=== PATIENT | female | born 1990 | race Caucasian/White ===

== ENCOUNTER → 2022-08-19 15:34 | Outpatient (CLI) | payer OTHER, MEDICAID, SELFPAY ==
--- NOTE | 2022-08-19 15:35 | DI.US.S_ITS ---
PROCEDURE: US PELVIC COMPLETE INDICATIONS: heavy periods w/ clots 15 pads daily TECHNIQUE: Real-time scanning was performed of the pelvic organs, with image documentation. Additional endovaginal scanning was necessary due to incomplete visualization of the adnexal and endometrial structures by transabdominal scanning. COMPARISON: None. FINDINGS: Uterus: Uterus is anteverted and normal in size at 8.3 x 4 x 5.1 cm. The myometrium is homogeneous. The endometrium measures 7 mm combined thickness. Ovaries: The right ovary measures 3.3 x 2.1 x 1.5 cm, with a calculated ovarian volume of 5.2 cc. The left ovary measures 3.4 x 2.2 x 1.9 cm, with a calculated ovarian volume of 7.4 cc. The ovaries have a normal sonographic appearance, within a 1.3 cm dominant follicle seen involving the left ovary, which is considered to be within physiologic limits. Less than 12 follicles can be seen in each ovary. No adnexal masses are seen. Other: No pathologic free abdominal or pelvic fluid. IMPRESSION: Pelvic ultrasound within normal limits, without a cause of the patient's presenting history identified. We strive to produce accurate, complete, and clear reports of imaging services. To assist us in improving patient care, this report was composed using standard report templates and voice recognition software. Therefore, it may contain abnormal punctuation, insertions and/or omissions. Occasional wrong-word or sound-alike substitutions may occur. Though we review the report and make efforts to correct it, we do recommend that the report be read carefully in proper context to recognize any text inaccuracies. Dictated by: Reagan Ochoa M.D. on 08/19/2022 at 15:51 Approved by: Reagan Ochoa M.D. on 08/19/2022 at 15:52
== END ==
PROVIDERS: PCP Family Medicine; Referring Provider Family Medicine; Visit Provider Family Medicine
DX: N92.0 Excessive and frequent menstruation with regular cycle (principal); M79.7 Fibromyalgia; R25.2 Cramp and spasm; G62.9 Polyneuropathy, unspecified
CPT/HCPCS: 76830; 76856

== ENCOUNTER → 2022-09-02 09:14 | Outpatient (CLI) | payer OTHER, MEDICAID, SELFPAY ==
[2022-09-02 19:44] LABS: HEMOLYSIS < 15 (0-50); Iron 202 ug/dL (37-170)
[2022-09-02 19:45] LABS: Add Manual Diff / Slide Review NO; Basophils Absolute Auto 0 /uL (0-100); Basophils Percent Auto 0.9 % (0-2); Eosinophils Absolute Auto 100 /uL (0-450); Eosinophils Percent Auto 1.8 % (2-4); Hematocrit 38.8 % (36-46); Hemoglobin 12.9 g/dL (12.0-16.0); Lymphocytes Absolute Auto 1000 /uL (1100-4500); Lymphocytes Percent Auto 23.6 % (25-40); Mean Corpuscular HGB Conc 33.4 % (30-36); Mean Corpuscular Hemoglobin 29.1 PG (26-34); Mean Corpuscular Volume 87.1 fL (80-100); Monocytes Absolute Auto 300 /uL (0-900); Neutrophils Absolute Auto 2900 /uL (1500-7000); Neutrophils Percent Auto 67.7 % (50-75); Platelet Count 166 X10^3/uL (150-400); Red Blood Cell Count 4.45 X10^6/uL (4.0-5.2); Red Cell Distribution Width 17.1 % (11.6-14.8); White Blood Cell Count 4.2 X10^3/uL (4.5-11.0)
[2022-09-02 19:48] LABS: Alanine Aminotransferase 210 IU/L (<35); Albumin 4.4 g/dL (3.5-5.0); Albumin Globulin Ratio 1.5 (1.0-2.8); Alkaline Phosphatase 132 U/L (38-126); Aspartate Aminotransferase 581 IU/L (14-36); Bilirubin Total 1.2 mg/dL (0.2-1.3); Blood Urea Nitrogen 8 mg/dL (7-17); C-Reactive Protein Quant < 0.5 mg/dL (<1.0); Calcium 8.6 mg/dL (8.4-10.2); Carbon Dioxide 34 mmol/L (22-32); Chloride 94 mmol/L (98-107); Creatine Kinase 70 U/L (30-135); Estimated Glomerular Filt Rate > 60 mL/min (>60); Globulin 2.9 g/dL (1.7-4.1); Glucose 78 mg/dL (70-100); HEMOLYSIS < 15 (0-50); Potassium 2.8 mmol/L (3.4-5.1); Sodium 138 mmol/L (137-145); Total Protein 7.3 g/dL (6.3-8.2)
[2022-09-02 19:57] LABS: Percent Iron Saturation 46 % (15-50); Rheumatoid Factor < 8.6 IU/mL (<12.0); Total Iron Binding Capacity 440 ug/dL (265-497); Transferrin 343 mg/dL (206-381)
[2022-09-02 20:04] LABS: Follicle Stimulating Hormone 6.03 mIU/mL; Luteinizing Hormone 3.73 mIU/mL
[2022-09-02 20:22] LABS: Prolactin 8.8 ng/mL (3.0-18.6)
[2022-09-02 20:38] LABS: TSH w/ Reflex to FT4 1.62 uIU/mL (0.47-4.68)
[2022-09-02 20:40] LABS: Ferritin 29 ng/mL (6-137)
[2022-09-02 20:55] LABS: Vitamin B12 860 pg/mL (239-931)
[2022-09-02 21:28] LABS: Erythrocyte Sedimentation Rate 10 MM/HR (0-20)
[2022-09-05 19:16] LABS: ANA Screen, IFA Negative (.)
[2022-09-11 09:05] LABS: Percent Free Testosterone 1.12 % (0.50-2.80); Testosterone Free 0.51 ng/dL (0.10-0.85); Testosterone Total 45.9 ng/dL (10.0-55.0)
[2022-09-11 11:30] LABS: Estrogen 246 pg/mL (.)
== END ==
PROVIDERS: PCP Family Medicine; Visit Provider Physician Assistant
DX: G62.9 Polyneuropathy, unspecified (principal); I10 Essential (primary) hypertension; M79.7 Fibromyalgia; R25.2 Cramp and spasm; N92.0 Excessive and frequent menstruation with regular cycle
CPT/HCPCS: 80053; 82550; 82607; 82672; 82728; 83001; 83002; 83540; 83550; 84146; 84402; 84403; 84443; 85025; 85610; 85651; 86038; 86140; 86430

== ENCOUNTER → 2022-09-03 10:00 | Outpatient (CLI) | payer OTHER, MEDICAID, SELFPAY ==
[2022-09-03 19:47] LABS: Alanine Aminotransferase 193 IU/L (<35); Albumin 4.6 g/dL (3.5-5.0); Albumin Globulin Ratio 1.5 (1.0-2.8); Alkaline Phosphatase 148 U/L (38-126); Aspartate Aminotransferase 440 IU/L (14-36); BUN Creatinine Ratio 15.4 (6-22); Bilirubin Total 1.8 mg/dL (0.2-1.3); Blood Urea Nitrogen 6 mg/dL (7-17); Calcium 8.9 mg/dL (8.4-10.2); Carbon Dioxide 32 mmol/L (22-32); Chloride 93 mmol/L (98-107); Estimated Glomerular Filt Rate > 60 mL/min (>60); Gamma Glutamyl Transpeptidase 793 U/L (12-43); Glucose 86 mg/dL (70-100); HEMOLYSIS < 15 (0-50); Lipase 203 U/L (23-300); Potassium 3.6 mmol/L (3.4-5.1); Sodium 136 mmol/L (137-145); Total Protein 7.6 g/dL (6.3-8.2)
[2022-09-03 20:38] LABS: Hep C Virus Ab w/Reflex Quant NEGATIVE s/c (NEGATIVE)
[2022-09-06 08:51] LABS: HBsAg Screen Negative (Negative); Hepatitis A Antibody IgM Negative (Negative); Hepatitis B Core Antibody IgM Negative (Negative); Hepatitis C Antibody Non Reactive (Non Reactive)
== END ==
PROVIDERS: PCP Family Medicine; Visit Provider Physician Assistant
DX: R74.8 Abnormal levels of other serum enzymes (principal)
CPT/HCPCS: 80053; 80074; 82977; 83690; 86803

== ENCOUNTER → 2022-10-07 11:14 | Outpatient (CLI) | payer OTHER, MEDICAID, SELFPAY ==
[2022-10-07 20:13] LABS: Alanine Aminotransferase 66 IU/L (<35); Albumin 4.7 g/dL (3.5-5.0); Albumin Globulin Ratio 1.6 (1.0-2.8); Alkaline Phosphatase 65 U/L (38-126); Aspartate Aminotransferase 53 IU/L (14-36); BUN Creatinine Ratio 20.4 (6-22); Bilirubin Total 0.5 mg/dL (0.2-1.3); Blood Urea Nitrogen 11 mg/dL (7-17); Carbon Dioxide 27 mmol/L (22-32); Chloride 102 mmol/L (98-107); Estimated Glomerular Filt Rate > 60 mL/min (>60); Globulin 2.9 g/dL (1.7-4.1); Glucose 91 mg/dL (70-100); HEMOLYSIS < 15 (0-50); Potassium 4.3 mmol/L (3.4-5.1); Sodium 138 mmol/L (137-145); Total Protein 7.6 g/dL (6.3-8.2)
== END ==
PROVIDERS: PCP Family Medicine; Visit Provider Family Medicine
DX: F90.9 Attention-deficit hyperactivity disorder, unspecified type (principal); R74.8 Abnormal levels of other serum enzymes
CPT/HCPCS: 80053; 80305

== ENCOUNTER 2023-04-23 12:20 | Day surgery (SDC) | payer OTHER, MEDICAID, SELFPAY ==
[2023-04-21 08:32] VITALS: BMI 25.2
[2023-04-23] VITALS (9 sets, daily range): BP systolic 126–181; BP diastolic 72–98; PULSE 68–88; RESP 12–24; TEMP 36.6–37.8; O2SAT 93–100; BMI 25.2
--- NOTE | 2023-04-23 | PATH_ITS ---
[facility] Accession Number: [id number] No. of containers..01 Tissue . 01 Material submitted: . uterus - UTERUS,CERVIX,BILATERAL FALLOPIAN TUBES . 01 Diagnosis: Uterus, Cervix, Left and Right Fallopian Tubes, Hysterectomy and Bilateral Salpingectomy: Cervix: No significant pathologic abnormality. Endometrium: Inactive. Myometrium: No significant pathologic abnormality. Serosa: No significant pathologic abnormalty. Fallopian tubes: No significant pathologic abnormality. MRV 05/01/2023 1751 Local . 01 Electronically signed: . Jeanne Baum MD, Pathologist NPI- [id number] . 01 Gross description: . The specimen is received in formalin labeled with the patient's name, , and uterus, cervix, bilateral fallopian tubes, consists of an intact uterus (89 grams, 7.7 cm from superior to inferior, 5.6 cm from medial to lateral, 4.0 cm from anterior to posterior), with attached cervix (3.5 x 3.4 cm) with two detached unoriented fimbriated fallopian tubes (5.3 x 0.5 cm and 4.7 x 0.4 cm, respectively), with no additional adnexa. The ectocervix is pink-cota, smooth and glistening with a slit-like os measuring 1.1 cm in diameter. A purple suture is identified at the presumed 12 o'clock position with no designation per the requisition. The anterior paracervical margin is inked blue while the posterior paracervical margin is inked black. The serosa is cota and smooth with no evidence of hemorrhage or adhesion identified. The endometrial cavity has cota herringbone mucosa and measures 3.2 cm in length. The endometrial cavity measures 2.8 cm from cornu to cornu and 3.9 cm in length with red-cota velvety endometrium that averages 0.1 cm with no lesions identified. The myometrium is pink-cota, trabecular, and measures 2.1 cm in maximum thickness with no nodules or lesions identified. . Both fallopian tubes have cota smooth serosa with no cystic structures identified, and sectioning reveals unremarkable stellate lumens. . [employer] sections are submitted as follows: A1: Anterior cervix. A2: Posterior cervix. A3: Anterior full thickness section. A4: Posterior full thickness section. A5: Serosa. A6: Longer fallopian tube to include one-half of bisected fimbriae and cross-sections. A7: [place] fallopian tube to include one-half of bisected fimbriae and cross sections. ([id number]) /MRV 04/24/2023 1411 Local . 01 Pathologist provided ICD-10: N94.6 . 01 CPT . 864585 Specimen Comment: A courtesy copy of this report has been sent to [facility] Performed at: 01 [facility] [address] [place] [address], [place], [place] [id number] MD Casimiro Potts MD Phone: [phone]
[2023-04-23 12:56] LABS: Add Manual Diff / Slide Review NO; Basophils Absolute Auto 0 /uL (0-100); Basophils Percent Auto 0.8 % (0-2); Eosinophils Absolute Auto 0 /uL (0-450); Eosinophils Percent Auto 0.7 % (2-4); Hematocrit 39.4 % (36-46); Hemoglobin 13.4 g/dL (12.0-16.0); Lymphocytes Absolute Auto 1300 /uL (1100-4500); Lymphocytes Percent Auto 27.4 % (25-40); Mean Corpuscular Volume 88.4 fL (80-100); Monocytes Absolute Auto 400 /uL (0-900); Monocytes Percent Auto 8.2 % (3-14); Neutrophils Absolute Auto 2900 /uL (1500-7000); Neutrophils Percent Auto 62.9 % (50-75); Platelet Count 213 X10^3/uL (150-400); Red Blood Cell Count 4.46 X10^6/uL (4.0-5.2); Red Cell Distribution Width 15.6 % (11.6-14.8); White Blood Cell Count 4.6 X10^3/uL (4.5-11.0)
--- NOTE | 2023-04-23 13:05 | PM.PREOP ---
Pre-operative Note Interval Note History & Physical reviewed/Exam performed by Physician: Yes Changes to H&P: No H&P completed within 30 days and has changed as indicated here:: See H&P on 04/16/23. No changes to pt history, and pt desires to proceed with planned procedure.
[2023-04-23] MEDS: LACTATED RINGERS 1,000 ML 42 ML IV ×2 (13:06→14:47)
[2023-04-23] MEDS: ALBUTEROL/IPRATROPIUM 3 ML AMPUL INH (13:06)
[2023-04-23 13:08] LABS: Alanine Aminotransferase 222 IU/L (<35); Albumin 4.9 g/dL (3.5-5.0); Albumin Globulin Ratio 1.4 (1.0-2.8); Alkaline Phosphatase 84 U/L (38-126); Aspartate Aminotransferase 346 IU/L (14-36); BUN Creatinine Ratio 21.2 (6-22); Bilirubin Total 1.3 mg/dL (0.2-1.3); Blood Urea Nitrogen 7 mg/dL (7-17); Calcium 8.7 mg/dL (8.4-10.2); Carbon Dioxide 25 mmol/L (22-32); Chloride 98 mmol/L (98-107); Estimated Glomerular Filt Rate > 60 mL/min (>60); Globulin 3.4 g/dL (1.7-4.1); Glucose 78 mg/dL (70-100); Potassium 3.8 mmol/L (3.4-5.1); Sodium 136 mmol/L (137-145); Total Protein 8.3 g/dL (6.3-8.2)
[2023-04-23 13:13] LABS: HEMOLYSIS 140 (0-50)
[2023-04-23] MEDS: CEFAZOLIN 2 GM/100 ML PREMIX 100 ML IV (14:20)
--- NOTE | 2023-04-23 14:41 | SUR.OPER ---
Lithotomy on padded OR bed. [place] Pad Positioner under torso. Head on pillow, arms padded and tucked at sides. Legs secured in padded yellow fins stirrups.
[2023-04-23] MEDS: BUPIVACAINE 0.25% (PF) VIAL 30 ML INJ (14:48)
--- NOTE | 2023-04-23 16:08 | P.OP_ITS ---
Operative Date/Time/Diagnoses Date of procedure: 04/23/23 Time of procedure: 14:00 Pre-op diagnosis: 1. Abnormal uterine bleeding 2. Dysmenorrhea Post-op diagnosis: same Procedure & Clinicians Procedure: Total laparoscopic hysterectomy Bilateral salpingectomy Cystoscopy Same procedure as scheduled: Yes Indications: 32-year-old with abnormal uterine bleeding and dysmenorrhea. She states that since the of her last child in 2020, she experienced monthly and sometimes twice monthly periods with heavy bleeding. She also reports severe cramping, which makes her daily activities difficult. She was seen by another provider and given a continuous control pill, which she has been taking for 2-3 months now. She states that her bleeding is light and irregular, however she continues to have severe cramping. She had a normal pelvic ultrasound done in August of this year. She is certain that she does not want to be again. Surgeon: Yenni Chandra Classified Ad Clerk: Glo Dumont Click Yes if Unassisted: No Anesthesia Type: General Operative Notes Findings: Normal appearing uterus, bilateral fallopian tubes, and bilateral ovaries. Liver slightly enlarged appearing. Normal appearing gallbladder. Appendix not visualized. Specimen(s): other (uterus, cervix, bilateral fallopian tubes) Estimated Blood Loss (mL): 100 Blood products transfused: none Procedure in detail: The risks, benefits, indications and alternatives of the procedure were reviewed with the patient and informed consent was obtained. The pt was taken to the operating room where general anesthesia was obtained without difficulty. The pt was then placed in the low lithotomy position using Amilcar Stirrups and arms were tucked with padding. Sequential compression devices were placed bilaterally for VTE prophylaxis. She was then prepped and draped in the sterile fashion and a Smith catheter was placed. ? A large V-Care manipulator was placed in the uterus for uterine manipulation. Attention was then turned to the patient?s abdomen were a 5mm skin incision was made in the inferior aspect of the umbilicus after injecting 0.25% Marcaine. A 5mm trocar and sleeve were then carefully introduced into the peritoneal cavity under direct visualization at a 90-degree angle while tenting up the abdominal wall. Intra-peritoneal placement was confirmed under direct visualization with the laparoscope with entry pressure <5 mmHg. A pneumoperitoneum was obtained with several liters of CO2 gas, maximum pressure of 15 mmHg. Upon entry into the peritoneal cavity, structures immediately below the incision were inspected and found to be free of injury. ? A survey of the patient's abdomen and pelvis was notable for the above. Two additional port sites, in the right lateral side and left lateral side, were placed under direct laparoscopic guidance. ? The Powerseal device was then used to clamp, cut, and ligate the left fallopian tube, which was removed via the left lateral port. The left utero-ovarian and round ligaments were then clamped, cut, and ligated. The anterior broad ligament was then incised along the bladder reflection and the bladder was dissected off the lower uterine segment until endopelvic fascia was visualized. The left uterine artery was then identified, skeletonized, and ligated. The left uterosacral ligament and cardinal ligament were ligated and transected. The same procedure was then completed on the right side of the uterus, including removal of the right fallopian tube. The anterior colpotomy was then made using the monopolar L-hook and continued circumferentially inferior to the cervix using the colpotomy ring as a guide. The entire cervix and uterus was then successfully amputated and delivered through the vagina. Excellent hemostasis was noted. ? Attention was then directed vaginally, where the vaginal cuff was closed with 0- vicryl sutures in an interrupted fashion of [id number]. ? Attention was then returned to the abdomen, where the pelvis was then copiously irrigated. Excellent hemostasis was noted. The cystoscope was then primed and advanced through the urethra and into the bladder. Both ureteral orifices were identified and bilateral efflux of urine was visualized. A survey of the bladder did not show defects or visible suture. The cystoscope was then removed and the Smith catheter was replaced to drain the bladder. The pneumoperitoneum was then released, and the remaining ports were removed. The skin incisions were then reapproximated using 4-0 monocryl suture in a subcuticular fashion and covered with Dermabond.? ? At the completion of the case the sponge and needle counts were correct x 2. The patient was taken to the PACU in stable condition. Complications: none Post-operative Condition: stable Disposition: PACU Plan for aftercare: Outpatient with a bed. Plan for discharge home in the morning.
[2023-04-23] MEDS: ONDANSETRON 4 MG/2 ML INJ IV ×2 (16:21→16:53)
[2023-04-23] MEDS: OXYCODONE IR 5 MG TABLET PO (16:24)
--- NOTE | 2023-04-23 17:58 | PC.NURSE ---
1644 Patient came in from PACU S/P Total Laporscopic hystrectomy with bilateral salpingectomy and cystoscopy.VSS,denies any pain or discomfort. Placed SCD's on bilateral legs,IV infusing well; 1652 gave zofran; patient feeling nauseated, very small emesis,passing gas.Eating ice.
--- NOTE | 2023-04-23 18:05 | PC.NURSE ---
resting, no nausea; patient comfortable,Family left
--- NOTE | 2023-04-23 19:17 | PC.NURSE ---
Heplocked IV,comfortable,denies any pain. N/V resolved, taking ice with no problems
[2023-04-23] MEDS: KETOROLAC 30 MG/ML VIAL IV (21:44)
[2023-04-24 01:47] VITALS: BP 149/79; PULSE 78; RESP 16; TEMP 37.5
--- NOTE | 2023-04-24 01:51 | PC.NURSE ---
Ziprasidone not given at 2100. Pt stated that it was with her and that she would be okay for the night as her bp has been normal for her
[2023-04-24 03:25] VITALS: BP 152/85; PULSE 80; TEMP 36.9
--- NOTE | 2023-04-24 03:27 | PC.NURSE ---
pt up ambulating around room. No exacerbation of pain. Moving without difficulty. Smith discontinued. Encouraged adequate fluid intake and attempting to void in a few hours. Burping and passing occasional gas. Bowel sounds normoactive.
[2023-04-24] MEDS: DOCUSATE 100 MG CAPSULE 200 MG PO ×2 (03:45→09:06)
[2023-04-24] MEDS: KETOROLAC 30 MG/ML VIAL IV ×2 (03:45→09:05)
--- NOTE | 2023-04-24 07:51 | PC.NURSE ---
Assumed care, report given by Nakia ROQUE. Dr. Chandra at bedside. Discharge orders received.
--- NOTE | 2023-04-24 07:54 | PM.DS.1 ---
History of Present Illness History of Present Illness Date Patient Seen: 04/24/23 Time Patient Seen: 07:54 Chief complaint: Postop hysterectomy Narrative: 32-year-old with LMP [id number] with abnormal uterine bleeding and dysmenorrhea. She states that since the of her last child in 2020, she experienced monthly and sometimes twice monthly periods with heavy bleeding. She also reports severe cramping, which makes her daily activities difficult. She was seen by another provider and given a continuous control pill, which she has been taking for 2-3 months now. She states that her bleeding is light and irregular, however she continues to have severe cramping. She had a normal pelvic ultrasound done in August of this year. She is certain that she does not want to be again. Discharge Providers Provider Discharge Date: 04/24/23 Primary care physician: Attila Brar MD Discharge provider: Yenni Chandra DO Summary Hospital Course Discharge Diagnosis: Abnormal uterine bleeding Dysmenorrhea Hospital Course: 32-year-old female postop day #1 s/p TLH/BS/cysto, reports feeling well this morning. Her pain is tolerable with ibuprofen and oxycodone. She had some nausea after taking oxycodone last night, however she took this on an empty stomach. She reports being able to tolerate regular diet, voiding spontaneously, with minimal vaginal bleeding. She is ambulating without dizziness/lightheadedness. Thus on postop day 1, she is deemed appropriate for discharge to home today. Status at Discharge Cognitive/behavioral status at discharge: oriented Functional status at discharge: independent ambulation Overall status at discharge: patient is back to baseline Time Spent with Patient Time spent: Less than 30 minutes Time spent discussing smoking cessation with patient: 3 to 10 minutes Exam Vital Signs (past 8 hours): - 04/24/23 01:47 04/24/23 03:25 Temperature 99.5 F 98.5 F Pulse Rate 78 80 Respiratory Rate 16 Blood Pressure 149/79 H 152/85 H Oxygen Delivery Method Room Air Const General: cooperative and No acute distress Resp Effort & Inspection: normal respiratory effort and able to speak in complete sentences GI Inspection: normal to inspection Palpation: soft, No guarding and tender (appropriately) Other: Three laparoscopic incisions clean/dry/intact with Dermabond Psych Mood: congruent mood Affect: normal affect Objective Labs 04/23/23 12:45 04/23/23 12:45 Labs: Laboratory Results - last 24 hr 04/23/23 12:45 WBC 4.6 RBC 4.46 Hgb 13.4 Hct 39.4 MCV 88.4 MCH 30.0 MCHC 34.0 RDW 15.6 H Plt Count 213 Neut % (Auto) 62.9 Lymph % (Auto) 27.4 [place] % (Auto) 8.2 Eos % (Auto) 0.7 L Baso % (Auto) 0.8 Neut # (Auto) 2900 Lymph # (Auto) 1300 [place] # (Auto) 400 Eos # (Auto) 0 Baso # (Auto) 0 Sodium 136 L Potassium 3.8 Chloride 98 Carbon Dioxide 25 BUN 7 Creatinine 0.33 L Estimated GFR > 60 BUN/Creatinine Ratio 21.2 Glucose 78 Calcium 8.7 Total Bilirubin 1.3 AST 346 H ALT 222 H Alkaline Phosphatase 84 Total Protein 8.3 H Albumin 4.9 Globulin 3.4 Albumin/Globulin Ratio 1.4 Blood Type A Negative Antibody Screen Negative ON LICENSE OF [facility] Medical History (Updated 04/24/23 @ 07:59 by Yenni Chandra DO) Elevated transaminase level Bipolar 1 disorder ADHD Severe dysmenorrhea Acne Restless leg syndrome Migraines Scoliosis Generalized anxiety disorder Fibromyalgia Menorrhagia Surgical History (Updated 04/17/23 @ 11:48 by Yenni Chandra DO) Anesthesia History of section Family History Father Diabetes mellitus Stroke Mother Hyperlipidemia Brother Hypertension Brother Hypertension Sister Overdose Grandfather Cancer Grandmother History of heart disease Grandfather Lung disease History of emphysema Grandmother Congestive heart failure Kidney disorder Social History household members: spouse Smoking Status: Current every day smoker quit status: considering quitting alcohol intake: former substance use type: marijuana Discharge Assessment & Plan Assessment and Plan Assessment: 32-year-old female status post TLH/BS/cysto Plan of Treatment: Discharge to home Discharge Plan Discharge Plan Patient Disposition: Home Provider Discharge Comment: Take ibuprofen 600 mg every 6 hours as needed for pain. Take oxycodone 5 mg every 4 hours as needed for pain not controlled with ibuprofen. Take this with food. Avoid lifting over 20 lb for 4 weeks. Nothing in the vagina for 6 weeks. Discharge orders & Medications Discharge Orders: Discharge (Order); Ordered 04/24/23 Ordered By: Yenni Chandra Prescriptions: Continued lisinopril 20 mg tablet 20 mg PO DAILY Qty: 90 1RF oxycodone 5 mg tablet 5 mg PO Q6H PRN (Reason: post-operative pain) Qty: 10 0RF ziprasidone HCl [Geodon] 20 mg capsule 20 mg PO BID Qty: 180 0RF Rx Instructions: give with food (meal/snack) methylphenidate HCl [Concerta] 18 mg tablet extended release 24hr 18 mg PO DAILY Qty: 28 0RF naproxen 500 mg tablet 500 mg PO BID PRN (Reason: pain) Qty: 40 0RF Rx Instructions: Take with food Follow up/Referrals: Attila Brar MD [Primary Care Provider] - Yenni Chandra DO [Physician] - Diet/Activity/Treatments Diet: Diet as Tolerated Skin/Wound/Dressing Care Report to your healthcare provider any signs of infection, such as:: chills, fever, increased pain, unusual drainage and unusual redness Dressing: You may shower normally Visit Report/Discharge Packet Instructions: DI for Hysterectomy, DI for Laparoscopy Stand Alone Forms: Patient Portal/API Discharge Data Primary Care Provider: Attila Brar Attending Provider: Yenni Chandra
== END 2023-04-24 10:00 | disposition home or self-care (01) ==
LOC: OR 12:21 → AC 12:22 → LABOR 16:29
PROVIDERS: PCP Family Medicine; Referring Provider Student in an Organized Health Care Education/Training Program; Visit Provider Student in an Organized Health Care Education/Training Program
PROC: 0UT94ZZ Resection of Uterus, Percutaneous Endoscopic Approach (ICD-10-PCS; CPT 58571; principal; 2023-04-23 13:30)
DX: N94.6 Dysmenorrhea, unspecified (principal); N93.8 Other specified abnormal uterine and vaginal bleeding
CPT/HCPCS: 58571; 36415; 80053; 81025; 85025; 86850; 86900; 86901; J0330; J0360; J0690; J1100; J1170; J1885; J2405; J3010

== ENCOUNTER 2023-07-09 14:30 | Emergency (ER) | payer OTHER, MEDICAID, SELFPAY ==
[2023-07-09] VITALS (7 sets, daily range): BP systolic 156–171; BP diastolic 91–97; PULSE 69–87; RESP 20; TEMP 36.9; O2SAT 90–100; BMI 24.1
[2023-07-09 15:31] LABS: Add Manual Diff / Slide Review NO; Basophils Absolute Auto 100 /uL (0-100); Eosinophils Absolute Auto 100 /uL (0-450); Eosinophils Percent Auto 0.9 % (2-4); Hematocrit 37.5 % (36-46); Lymphocytes Absolute Auto 1500 /uL (1100-4500); Lymphocytes Percent Auto 18.2 % (25-40); Mean Corpuscular HGB Conc 34.8 % (30-36); Mean Corpuscular Hemoglobin 30.3 PG (26-34); Mean Corpuscular Volume 87.1 fL (80-100); Monocytes Absolute Auto 600 /uL (0-900); Monocytes Percent Auto 7.3 % (3-14); Neutrophils Absolute Auto 6100 /uL (1500-7000); Neutrophils Percent Auto 72.6 % (50-75); Platelet Count 292 X10^3/uL (150-400); Red Cell Distribution Width 15.4 % (11.6-14.8); White Blood Cell Count 8.3 X10^3/uL (4.5-11.0)
[2023-07-09 15:58] LABS: Alanine Aminotransferase 268 IU/L (<35); Albumin 4.6 g/dL (3.5-5.0); Albumin Globulin Ratio 1.5 (1.0-2.8); Alkaline Phosphatase 89 U/L (38-126); Aspartate Aminotransferase 395 IU/L (14-36); BUN Creatinine Ratio 21.6 (6-22); Bilirubin Total 0.6 mg/dL (0.2-1.3); Blood Urea Nitrogen 8 mg/dL (7-17); Calcium 8.7 mg/dL (8.4-10.2); Carbon Dioxide 28 mmol/L (22-32); Chloride 104 mmol/L (98-107); Estimated Glomerular Filt Rate > 60 mL/min (>60); Glucose 80 mg/dL (70-100); HEMOLYSIS < 15 (0-50); Lipase 108 U/L (23-300); Sodium 142 mmol/L (137-145); Total Protein 7.6 g/dL (6.3-8.2)
--- NOTE | 2023-07-09 17:13 | ED.FEMALEGU ---
HPI - Female Genitourinary General Chief complaint: Urogenital-Female Stated complaint: pelvic pain, HBP, hysterectomy in Dec. Time Seen by Provider: 07/09/23 15:22 Source: patient Mode of arrival: Ambulatory History of Present Illness HPI Narrative: This is a 32-year-old female complaining of pelvic pain. She is status post laparoscopic hysterectomy with retention of the ovaries in late 2022 with gynecologic follow up on June 05 of this year. I reviewed that note. Also reviewed family practice note from yesterday. The patient reports crampy lower abdominal pain beginning at 6:30 a.m. this morning. Is not accompanied with nausea vomiting bowel habits changes fevers or urinary symptoms. Said it felt like she needed to have a bowel movement, symptoms persisted throughout today but gradually improved. She went to the fire department in [facility] she was checked out and advised to come here. Only abdominal surgeries are hysterectomy as noted above and section. Patient had not taken any pain medications prior to being seen, she says that she is feeling better and is hoping to leave soon. Related Data Previous Rx's Medication Instructions Recorded naproxen 500 mg tablet 500 mg PO BID PRN pain #40 tabs 11/04/22 betamethasone valerate 0.1 % 1 applic topical DAILY #45 grams 07/08/23 topical ointment ciclopirox 8 % topical solution 1 applic topical BEDTIME 4 weeks 07/08/23 #6.6 mL doxycycline hyclate 50 mg tablet 50 mg PO BID #60 tabs 07/08/23 lisinopril 20 mg tablet 20 mg PO DAILY #90 tabs 07/08/23 methylphenidate HCl 18 mg 18 mg PO DAILY #28 tabs 07/08/23 tablet,extended release 24 hr (Concerta) terbinafine HCl 1 % topical cream 1 applic topical BID #30 grams 07/08/23 ziprasidone HCl 20 mg capsule 20 mg PO BID #180 caps 07/08/23 (Geodon) Allergies Allergy/AdvReac Type Severity Reaction Status Date / Time acetaminophen [From Tylenol] AdvReac Mild Verified 06/05/23 09:53 Patient History Medical History (Updated 07/09/23 @ 17:12 by Tylor Camargo MD) Elevated transaminase level Bipolar 1 disorder ADHD Severe dysmenorrhea Acne Restless leg syndrome Migraines Scoliosis Generalized anxiety disorder Fibromyalgia Menorrhagia Surgical History (Updated 06/05/23 @ 10:19 by Yenni Chandra DO) History of bilateral salpingectomy History of hysterectomy including cervix Anesthesia History of section Family History Father Diabetes mellitus Stroke Mother Hyperlipidemia Brother Hypertension Brother Hypertension Sister Overdose Grandfather Cancer Grandmother History of heart disease Grandfather Lung disease History of emphysema Grandmother Congestive heart failure Kidney disorder tobacco type: cigarettes alcohol intake frequency: holidays/special occasions only Substance Use Type: marijuana Exam Initial Vital Signs Initial Vital Signs: Vital Signs Temperature 98.4 F 07/09/23 14:32 Pulse Rate 76 07/09/23 14:32 Respiratory Rate 20 07/09/23 14:32 Blood Pressure 171/94 H 07/09/23 14:32 Pulse Oximetry 100 07/09/23 14:32 Oxygen Delivery Method Room Air 07/09/23 14:32 Const Other: Appears to be in no distress Resp Effort & Inspection: normal respiratory effort Auscultation: clear to auscultation bilaterally Cardio Other: Regular rhythm rate no murmur rub or gallop GI Other: Bowel sounds are normal abdomen is soft minimal suprapubic tenderness no guarding or rebound Course Orders Ordered: ED Orders 07/09/23 15:22 Complete Blood Count AUTO DIFF Stat Comprehensive Metabolic Panel Stat Lipase Stat Ondansetron HCl (Ondansetron 4 Mg/2 Ml Inj) 4 mg IV NOW PRN PRN Reason: Nausea And Vomiting Ondansetron HCl (Ondansetron 4 Mg Odt) 4 mg PO NOW PRN PRN Reason: Nausea And Vomiting Vital Signs Vital signs: Vital Signs - 8 hr 07/09/23 14:32 07/09/23 15:08 07/09/23 15:10 Temperature 98.4 F Pulse Rate 76 69 Respiratory Rate 20 Blood Pressure 171/94 H 168/97 H Pulse Oximetry 100 90 L Oxygen Delivery Method Room Air 07/09/23 15:10 Temperature Pulse Rate 73 Respiratory Rate Blood Pressure Pulse Oximetry 97 Oxygen Delivery Method Notably hypertensive, she has not been on her blood pressure medications recently, pain may also be influencing her blood pressure. Symptoms do not suggest hypertensive urgency. MDM - Female Genitourinary Medical Records Medical records narrative: Reviewed gynecology note from June 05 and family practice note from 07/08 as noted above Lab Data Lab results narrative: CBC with diff is unremarkable, CMP she has a low potassium she has mild elevation of transaminases. This is chronic. Urine dipstick is unremarkable 07/09/23 15:22 07/09/23 15:22 Labs: Lab Results 07/09/23 Range/Units 15:22 WBC 8.3 (4.5-11.0) X10^3/uL RBC 4.30 (4.0-5.2) X10^6/uL Hgb 13.0 (12.0-16.0) g/dL Hct 37.5 (36-46) % MCV 87.1 (80-100) fL MCH 30.3 (26-34) PG MCHC 34.8 (30-36) % RDW 15.4 H (11.6-14.8) % Plt Count 292 (150-400) X10^3/uL Neut % (Auto) 72.6 (50-75) % Lymph % (Auto) 18.2 L (25-40) % Garza % (Auto) 7.3 (3-14) % Eos % (Auto) 0.9 L (2-4) % Baso % (Auto) 1.0 (0-2) % Neut # (Auto) 6100 (6028-4986) /uL Lymph # (Auto) 1500 (9102-3737) /uL Garza # (Auto) 600 (0-900) /uL Eos # (Auto) 100 (0-450) /uL Baso # (Auto) 100 (0-100) /uL Sodium 142 (137-145) mmol/L Potassium 3.0 L (3.4-5.1) mmol/L Chloride 104 (98-107) mmol/L Carbon Dioxide 28 (22-32) mmol/L BUN 8 (7-17) mg/dL Creatinine 0.37 L (0.52-1.04) mg/dL Estimated GFR > 60 (>60) mL/min BUN/Creatinine Ratio 21.6 (6-22) Glucose 80 (70-100) mg/dL Calcium 8.7 (8.4-10.2) mg/dL Total Bilirubin 0.6 (0.2-1.3) mg/dL AST 395 H (14-36) IU/L ALT 268 H (<35) IU/L Alkaline Phosphatase 89 (38-126) U/L Total Protein 7.6 (6.3-8.2) g/dL Albumin 4.6 (3.5-5.0) g/dL Globulin 3.0 (1.7-4.1) g/dL Albumin/Globulin Ratio 1.5 (1.0-2.8) Lipase 108 (23-300) U/L Urine Dip Bedside Urine Glucose Negative Bedside Urine Bilirubin - Negative Bedside Urine Ketone +/- 5 Urine Specific H[place]sey 1.020 Bedside Urine Occult Blood - Negative Bedside Urine pH 6 Bedside Urine Protein - Negative Bedside Urine Urobilinogen - Negative Bedside Urine Nitrite - Negative Bedside Urine Leukocytes - Negative Esterase MDM Narrative Medical decision making narrative: 32-year-old female with pelvic pain that has resolved spontaneously. Differential diagnosis includes ovarian torsion, constipation, bowel obstruction, urinary tract infection ureteral stone. The pain does not lateralize I think ovarian torsion is unlikely. She says she had been moving her bowels normal urinalysis does not suggest stone or urinary tract infection. With her resolved pain and minimal tenderness I think she can be discharged to follow up as an outpatient. Indications for return to the ED are reviewed. Discharge Plan Departure Patient Disposition: Home Clinical Impression: Pelvic pain Activity Restrictions/Additional Instructions: Emergency department evaluation today is reassuring. I am glad you are feeling better labs do not suggest that there is an acute process requiring emergent evaluation and I think it is okay for you to go home. Continue previous home medications, recheck if you are having increasing pain fevers vomiting or other acute symptoms. I recommend you follow up with your material reprocessing associate soon for a recheck. For [id number] pain you can use ibuprofen 600 mg up to 3 times a day. It is best to take this with food. Make sure that you are getting adequate fluids. Prescriptions: No Action naproxen 500 mg tablet 500 mg PO BID PRN (Reason: pain) Qty: 40 0RF Rx Instructions: Take with food lisinopril 20 mg tablet 20 mg PO DAILY Qty: 90 1RF methylphenidate HCl [Concerta] 18 mg tablet extended release 24hr 18 mg PO DAILY Qty: 28 0RF Rx Instructions: Must last 28 days. Release date 07/08/23 ziprasidone HCl [Geodon] 20 mg capsule 20 mg PO BID Qty: 180 0RF Rx Instructions: give with food (meal/snack) ciclopirox 8 % solution 1 applic topical BEDTIME 28 Days Qty: 6.6 8RF doxycycline hyclate 50 mg tablet 50 mg PO BID Qty: 60 5RF betamethasone valerate 0.1 % ointment 1 applic topical DAILY Qty: 45 0RF terbinafine HCl 1 % cream 1 applic topical BID Qty: 30 4RF Referrals: Attila Brar MD [Primary Care Provider] - Stand Alone Forms: Patient Portal/API
== END 2023-07-09 17:20 | disposition home or self-care (01) ==
PROVIDERS: Emergency Provider Emergency Medicine; PCP Family Medicine
DX: R10.2 Pelvic and perineal pain (principal); Z90.710 Acquired absence of both cervix and uterus
CPT/HCPCS: 36415; 80053; 81003; 83690; 85025; 99283